=== PATIENT | female | born 1990 | race Two or more races ===

== ENCOUNTER 2021-01-13 05:39 | Emergency (ER) | payer SELFPAY ==
[~2021-01-13] VITALS: Ht 167.6 cm; Wt 96.2 kg
[2021-01-13 05:40] VITALS: BP 158/87
== END 2021-01-13 07:19 | disposition left against medical advice (07) ==
LOC: ER 05:39
DX: R10.13 Epigastric pain (principal); Z53.21 Procedure and treatment not carried out due to patient leaving prior to being seen by health care provider